=== PATIENT | female | born 1990 | race Caucasian/White ===

== ENCOUNTER → 2024-06-01 | Outpatient (CLI) | payer OTHER ==
[2024-06-01 09:08] LABS: HEMATOCRIT 38.5 % (37.0-47.0); HEMOGLOBIN 12.7 g/dL (12.5-16.0); MEAN PLATELET VOLUME 11.1 fl (7.4-10.4); RED BLOOD COUNT 4.25 M/mm3 (4.10-5.30); RED CELL DISTRIBUTION WIDTH 11.7 % (11.5-14.5)
[2024-06-01 09:15] LABS: ALBUMIN 4.4 g/dL (3.5-5.0)
[2024-06-01 09:17] LABS: CALCIUM 9.5 mg/dL (8.3-10.5)
[2024-06-01 09:18] LABS: TOTAL PROTEIN 7.2 g/dL (6.4-8.3)
[2024-06-01 09:20] LABS: TOTAL BILIRUBIN 0.4 mg/dL (0.2-1.2)
== END ==
LOC: LAB 08:53
PROVIDERS: Family Medicine
DX: Z13.29 Encounter for screening for other suspected endocrine disorder (principal); K63.8219 Small intestinal bacterial overgrowth, unspecified

== ENCOUNTER → 2024-07-29 | Outpatient (CLI) | payer OTHER ==
[2024-08-04 05:39] LABS: BAKERS YEAST ALLERGEN COUNT <0.10 kU/L (Class 0); CORN ALLERGEN COUNT 0.24 kU/L (()); EGG WHITE ALLERGEN COUNT 0.36 kU/L (Class I); MILK ALLERGEN COUNT <0.10 kU/L (Class 0); ORANGE ALLERGEN COUNT <0.10 kU/L (Class 0); PEANUT ALLERGEN COUNT <0.10 kU/L (Class 0); RICE ALLERGEN COUNT <0.10 kU/L (Class 0); SOYBEAN ALLERGEN COUNT <0.10 kU/L (Class 0); STRAWBERRY ALLERGEN COUNT <0.10 kU/L (Class 0); TOMATO ALLERGEN COUNT 0.19 kU/L (()); WHEAT ALLERGEN COUNT <0.10 kU/L (Class 0)
== END ==
LOC: LAB 09:09
PROVIDERS: Family Medicine
DX: R14.0 Abdominal distension (gaseous) (principal)

== ENCOUNTER → 2024-09-08 | Outpatient (CLI) | payer OTHER | LOC: RAD 15:53 | DX: M79.672 Pain in left foot (principal) ==